=== PATIENT | male | born 1960 | race Asian ===

== ENCOUNTER 2020-10-21 13:30 | Inpatient (IN) | payer OTHER ==
[~2020-10-21] VITALS: Ht 157.5 cm; Wt 58.7 kg
--- NOTE | 2020-10-21 13:30 | NUR ---
Pt arrives to medical unit rm [id number] from [facility] via [facility]. Pt awake and alert, denies pain or needs at this time. Provider notified of arrival. Call light in reach.
[2020-10-21 14:45] VITALS: BP 142/78; PULSE 60; TEMP 97.8
[2020-10-21] MEDS ORDERED: KEPPRA 500MG500 MG PO (15:54)
[2020-10-21 15:57] LABS: BASO # 0.1 (0.0-0.2); BASO % 0.7 % (0.0-2.0); EOS # 0.3 (0.0-0.7); EOS % 3.4 % (0-4.0); GRAN # 5.1 (1.4-6.5); GRAN % 60.2 % (42.2-75.2); HEMATOCRIT 43.2 % (42.0-52.0); HEMOGLOBIN 14.4 g/dl (13.5-18.0); LYMPH # 2.3 (1.2-3.4); LYMPH % 27.4 % (20.0-51.0); MEAN CELL VOLUME 92 fl (80.0-100.0); MEAN CORPUSCULAR HEMOGLOBIN 31 pg (27.0-31.0); MEAN CORPUSCULAR HGB CONC 33 g/dl (33.0-37.0); MONO # 0.7 (0.1-0.6); MONO % 7.8 % (1.7-9.3); PLATELET COUNT 235 K/mm3 (130-400); RED BLOOD COUNT 4.68 M/mm3 (4.20-5.60); REDCELL DISTRIBUTION WIDTH-CV 12.7 % (11.5-14.5)
[2020-10-21] MEDS ORDERED: ASPIRIN E.C. 8181 MG PO (15:58)
[2020-10-21 16:00] VITALS: BP 120/67; PULSE 60; PULSE 602; TEMP 98.4
[2020-10-21] MEDS ORDERED: COREG12.5 MG PO (16:00)
[2020-10-21] MEDS ORDERED: PLAVIX 75MG TAB75 MG PO (16:29)
[2020-10-21] MEDS ORDERED: ZETIA 10MG TAB10 MG PO (16:31)
[2020-10-21] MEDS ORDERED: PRINIVIL10 MG PO (16:33)
[2020-10-21] MEDS ORDERED: COZAAR 25MG25 MG/TAB PO (16:37)
[2020-10-21] MEDS ORDERED: GLUCOPHAGE500 MG/TAB PO (16:38)
[2020-10-21] MEDS ORDERED: LIPITOR 80MG80 MG PO (16:40)
[2020-10-21] MEDS ORDERED: ELIQUIS 5MG PO (16:40)
--- NOTE | 2020-10-21 18:40 | NUR ---
Report with LILY Courtney. Pt sitting up in chair, denies pain or needs at this time. Call light in reach.
[2020-10-21 21:06] VITALS: BP 112/68; PULSE 61; TEMP 98.6
[2020-10-22] VITALS (13 sets, daily range): BP systolic 119–152; BP diastolic 62–96; PULSE 59–80; TEMP 98–98.7
--- NOTE | 2020-10-22 00:52 | NUR ---
PT ALERT AND ORIENTED. PT DENIES CHEST PAIN OR SOA AT THIS TIME. VS STABLE AT THIS TIME. PT IV INFILTRATED ON RIGHT FOREARM. PT IV RESTARTED IN RIGHT AC, FLUSHED, BLOOD RETURN NOTED. PT ABLE TO AMBULATE IN ROOM, CALL LIGHT WITHIN REACH.
--- NOTE | 2020-10-22 05:05 | NUR ---
PT CONTINUING ON PLAN OF CARE. PT DENIED CHEST PAIN OR SOA THIS SHIFT. PT ABLE TO REST IN BED THIS SHIFT. PT ABLE TO AMBULATE INDEPENDENTLY IN ROOM. PT BLOOD SUGARS MONITORED EVERY 4 HOURS PER ORDERS. PT VS STABLE THIS SHIFT. PT FREE FROM INJURY THIS SHIFT.
[2020-10-22 07:07] LABS: BASO # 0.1 (0.0-0.2); BASO % 0.7 % (0.0-2.0); EOS # 0.3 (0.0-0.7); EOS % 4.2 % (0-4.0); GRAN # 3.7 (1.4-6.5); GRAN % 55.5 % (42.2-75.2); HEMATOCRIT 41.9 % (42.0-52.0); HEMOGLOBIN 13.8 g/dl (13.5-18.0); LYMPH # 2.1 (1.2-3.4); LYMPH % 30.7 % (20.0-51.0); MEAN CELL VOLUME 95 fl (80.0-100.0); MEAN CORPUSCULAR HEMOGLOBIN 31 pg (27.0-31.0); MEAN CORPUSCULAR HGB CONC 33 g/dl (33.0-37.0); MONO # 0.6 (0.1-0.6); MONO % 8.5 % (1.7-9.3); PLATELET COUNT 226 K/mm3 (130-400); RED BLOOD COUNT 4.42 M/mm3 (4.20-5.60); REDCELL DISTRIBUTION WIDTH-CV 12.6 % (11.5-14.5)
[2020-10-22 07:15] LABS: CREATININE, serum 0.77 (0.66-1.25); MAGNESIUM 1.9 mg/dL (1.6-2.3); POTASSIUM 3.9 mmol/L (3.4-5.0)
[2020-10-22 07:18] LABS: PROTHROMBIN TIME 11.2 SECONDS (9.7-12.8)
[2020-10-22 07:21] LABS: PARTIAL THROMBOPLASTIN TIME 29.5 SECONDS (26.0-37.0)
--- NOTE | 2020-10-22 08:00 | NUR ---
Patient laying in bed awake. A&Ox3. VSS. IV CDI. Denies chest pain, pain and discomfort. Is wanting a shower before his procedure. Nurse informed the patient that we are waiting on the doctors to round. Telemetry on chest. Patient NPO for procedure. No further needs expressed from the patient. Call light within reach
--- NOTE | 2020-10-22 09:01 | NUR ---
Patient taken to heart cath procedure
--- NOTE | 2020-10-22 09:23 | NUR ---
SEE MERGE FOR ALL MEDICATION ADMINISTRATION TIMES, INTRA AND POST SEDATION ASSESSMENT
--- NOTE | 2020-10-22 11:05 | NUR ---
Patient to room 353 from the cath lab manager. Patient A&Ox3. VSS, BP hypertensive, doctor aware. Denies pain and discomfort. IV CDI. RT groin site CDI. Patient instructed to keep right leg staight and cannot get up until 1300. Patient verbalized an understanding. Call light within reach. Bed alarm on. Post op VS being monitored
--- NOTE | 2020-10-22 13:54 | NUR ---
Sw met with the pt who stated his preference to return home once medically stable. The pt lives at home alone, but . The pt NK is his brother, Calin ([phone]). The is independent on all ADLS and does not use any DME. The pt PCP is Dr. Olivia and he gets his medications from [facility] in . The pt has no trouble obtaining the cost. The pt has never used HH services before. The pt does not have [facility] at this time and not interested in one at this time. No other needs stated at this time. Sw to await further recommendations and follow up as needed. D/C: Home
[2020-10-22] MEDS ORDERED: NITROSTAT0.4 MG/TAB SL (17:14)
[2020-10-22] MEDS ORDERED: LASIX 40MG TABL40 MG PO (17:15)
--- NOTE | 2020-10-22 17:24 | NUR ---
Patient had a heart cath procedure and tolerated well. A&Ox4. VSS. IV CDI. RT groin site CDI. Denies pain and discomfort. Independent in the room. No further needs expressed from the patient. Call light within reach
--- NOTE | 2020-10-22 20:00 | NUR ---
Initial shift assessment done- VSS, right groin site dry and intact, soft-no hematoma, tender-asked of patient would like something for pain but pt denies need,, Tele on.
[2020-10-23 05:00] VITALS: BP 124/96; PULSE 72; TEMP 98
--- NOTE | 2020-10-23 05:42 | NUR ---
Quiet night-- VSS, right groing dressing remains dry and intact-- soft, no hematoma. Tele on. Did request a couple jellos this morning- no other requests, hopes to go home today.
[2020-10-23 06:50] LABS: BASO % 0.4 % (0.0-2.0); EOS # 0.2 (0.0-0.7); EOS % 3.1 % (0-4.0); GRAN # 4.9 (1.4-6.5); GRAN % 65.5 % (42.2-75.2); HEMATOCRIT 41.8 % (42.0-52.0); LYMPH # 1.6 (1.2-3.4); LYMPH % 20.8 % (20.0-51.0); MEAN CELL VOLUME 93 fl (80.0-100.0); MEAN CORPUSCULAR HEMOGLOBIN 31 pg (27.0-31.0); MEAN CORPUSCULAR HGB CONC 34 g/dl (33.0-37.0); MEAN PLATELET VOLUME 9.6 fl (7.4-10.4); MONO # 0.7 (0.1-0.6); MONO % 9.8 % (1.7-9.3); PLATELET COUNT 224 K/mm3 (130-400); REDCELL DISTRIBUTION WIDTH-CV 12.6 % (11.5-14.5)
[2020-10-23 07:02] LABS: CALCIUM 8.8 mg/dL (8.4-10.2); CREATININE, serum 0.79 (0.66-1.25); POTASSIUM 3.6 mmol/L (3.4-5.0)
--- NOTE | 2020-10-23 07:40 | NUR ---
Shift assessment complete. Pt resting in bed watching tv, A&Ox4. Heart RRR. Lung sounds diminished to auscultation. Denies chest pain, dizziness, SOA. No concerns at this time. Call light in reach. Continuing to monitor.
[2020-10-23 07:46] VITALS: BP 142/83; PULSE 72; TEMP 98.5
[2020-10-23 11:38] VITALS: BP 120/80; PULSE 61; TEMP 97.7
--- NOTE | 2020-10-23 12:22 | NUR ---
Discharge instructions discussed w/pt and all questions answered. IV to right forearm removed w/tip intact. Pt escorted out w/all belongings.
[2020-10-25] MEDS ORDERED: COZAAR 25MG25 MG/TAB PO (14:46)
[2020-10-25] MEDS ORDERED: COREG 3.123.125 MG/T PO (14:46)
== END 2020-10-23 12:15 | disposition home or self-care (01) | DRG 246 ==
LOC: MEDICAL 13:30
PROVIDERS: Nurse Practitioner; Physician Assistant; ADMIT Student in an Organized Health Care Education/Training Program
PROC: 027135Z Dilation of Coronary Artery, Two Arteries with Two Drug-eluting Intraluminal Devices, Percutaneous Approach (ICD-10-PCS; principal; 2020-10-22)
PROC: 02703DZ Dilation of Coronary Artery, One Artery with Intraluminal Device, Percutaneous Approach (ICD-10-PCS; 2020-10-22)
PROC: 4A023N7 Measurement of Cardiac Sampling and Pressure, Left Heart, Percutaneous Approach (ICD-10-PCS; 2020-10-22)
PROC: B2111ZZ Fluoroscopy of Multiple Coronary Arteries using Low Osmolar Contrast (ICD-10-PCS; 2020-10-22)
DX: I21.4 Non-ST elevation (NSTEMI) myocardial infarction (principal); I50.23 Acute on chronic systolic (congestive) heart failure; J96.01 Acute respiratory failure with hypoxia; E87.2 Acidosis; I25.10 Atherosclerotic heart disease of native coronary artery without angina pectoris; D64.9 Anemia, unspecified; G40.909 Epilepsy, unspecified, not intractable, without status epilepticus; I73.9 Peripheral vascular disease, unspecified; E11.9 Type 2 diabetes mellitus without complications; E78.5 Hyperlipidemia, unspecified; E83.42 Hypomagnesemia; D72.829 Elevated white blood cell count, unspecified; Z86.73 Personal history of transient ischemic attack (TIA), and cerebral infarction without residual deficits
CPT/HCPCS: 99222-AI; 99233-AI; 99239; C1725; C1760; C1769; C1874; C1887; C1894; C9600; J1644; J1940; J2250; J3010